=== PATIENT | female | born 1980 | race African-American/Black ===

== ENCOUNTER 2019-09-09 21:58 | Observation (INO) | payer MEDICAID ==
[~2019-09-09] VITALS: Ht 170.2 cm; Wt 98.4 kg
[2019-09-09] MEDS ORDERED: TERBUTALINE SULFATE 1MG/ML VIAL SUBCUT PRN (23:30)
[2019-09-09] MEDS ORDERED: FLUCONAZOLE 150MG TABLET PO NR (23:30)
[2019-09-09] MEDS: LACTATED RINGERS 1,000 ML IV SCH (23:45)
[2019-09-09 23:53] LABS: CLARITY URINE CLEAR (CLEAR); COLOR URINE YELLOW (YELLOW); KETONES URINE TRACE (NEGATIVE); LEUKOCYTE ESTERASE URINE 3+ (NEGATIVE); NITRITE URINE NEGATIVE (NEGATIVE); OCCULT BLOOD URINE NEGATIVE (NEGATIVE); PH URINE 6.5 (4.5-8.0); PROTEIN URINE NEGATIVE (NEGATIVE); SPECIFIC GRAVITY URINE 1.005 (1.005-1.030); UROBILINOGEN URINE 0.2 E.U./dL (0.2-1.0)
[2019-09-10] MEDS: LACTATED RINGERS 1,000 ML IV SCH (00:11)
[2019-09-10] MEDS ORDERED: PREN1TAB78 PO (01:08)
== END 2019-09-10 01:45 | disposition home or self-care (01) ==
LOC: 8 EST LDRP 21:58
PROVIDERS: ADMIT Obstetrics & Gynecology; ATTEND Obstetrics & Gynecology
DX: O26.893 Other specified pregnancy related conditions, third trimester (principal); R10.30 Lower abdominal pain, unspecified; O99.89 Other specified diseases and conditions complicating pregnancy, childbirth and the puerperium; M54.5 Low back pain; O09.523 Supervision of elderly multigravida, third trimester; Z3A.33 33 weeks gestation of pregnancy
CPT/HCPCS: 81003; 82731; 96360; 96361; 96372; 99281; G0378; J3105

== ENCOUNTER → 2019-10-15 | Outpatient (CLI) | payer MEDICAID ==
[~2019-10-15] MED LIST: PREN1TAB78 PO
== END | disposition home or self-care (01) ==
LOC: LAB 14:46
PROVIDERS: ATTEND Obstetrics & Gynecology
DX: Z03.818 Encounter for observation for suspected exposure to other biological agents ruled out (principal)
CPT/HCPCS: C9803; U0003

== ENCOUNTER 2019-10-18 05:16 | Inpatient (IN) | payer MEDICAID ==
[~2019-10-18] VITALS: Ht 170.2 cm; Wt 99.8 kg
[2019-10-18] MEDS ORDERED: NALOXONE HCL 0.4 MG/ML 1ML VIAL IM PRN (06:00)
[2019-10-18] MEDS ORDERED: METHYLERGONOVINE MALEATE 0.2 MG/ML IM PRN (06:00)
[2019-10-18] MEDS ORDERED: CARBOPROST TROMETHAMINE 250 MCG/ML AMPUL IM PRN (06:00)
[2019-10-18] MEDS ORDERED: CITRIC ACID/SODIUM CITRATE SOLN 30ML UDC PO NR (06:00)
[2019-10-18] MEDS: LACTATED RINGERS 1,000 ML IV SCH ×2 (06:09→07:11)
[2019-10-18 06:53] LABS: CLARITY URINE CLEAR (CLEAR); COLOR URINE YELLOW (YELLOW); KETONES URINE NEGATIVE (NEGATIVE); LEUKOCYTE ESTERASE URINE 3+ (NEGATIVE); NITRITE URINE NEGATIVE (NEGATIVE); OCCULT BLOOD URINE NEGATIVE (NEGATIVE); PH URINE 6.5 (4.5-8.0); PROTEIN URINE NEGATIVE (NEGATIVE); SPECIFIC GRAVITY URINE 1.011 (1.005-1.030); UROBILINOGEN URINE 0.2 E.U./dL (0.2-1.0)
[2019-10-18 07:05] LABS: INR 0.9; PARTIAL THROMBOPLASTIN TIME 22.8 sec (23.4-31.0); PROTHROMBIN TIME 9.3 sec (9.6-11.0)
[2019-10-18] MEDS ORDERED: MIDAZOLAM HCL 2 MG/2 ML VIAL ONE (07:05)
[2019-10-18] MEDS ORDERED: MORPHINE SULFATE/PF 1MG/ML 10ML AMP ONE (07:05)
[2019-10-18] MEDS ORDERED: FENTANYL CITRATE/PF 50MCG/ML 2ML VIAL ONE (07:05)
[2019-10-18] MEDS ORDERED: CEFAZOLIN SODIUM 1000MG/VIAL ONE (07:06)
[2019-10-18] MEDS ORDERED: ONDANSETRON HCL 4MG/2ML INJ ONE (07:06)
[2019-10-18] MEDS ORDERED: OXYTOCIN 10 UNITS/ML 1ML ONE ×2 (07:06→13:22)
[2019-10-18] MEDS ORDERED: GLYCOPYRROLATE 0.2 MG/ML 2ML VIAL ONE (07:06)
[2019-10-18 07:20] LABS: BASOPHILS % 0.3 % (0.0-2.0); EOSINOPHILS % 0.6 % (0.0-5.0); HEMATOCRIT. 29.3 % (36.0-48.0); HEMOGLOBIN. 9.9 g/dL (12.0-16.0); LYMPHOCYTES % 17.8 % (20.0-50.0); MEAN CORPUSCULAR HEMOGLOBIN 25.2 pg (28.0-32.0); MEAN CORPUSCULAR VOLUME 74.6 fL (81.0-99.0); MEAN PLATELET VOLUME 9.7 fl (7.4-10.4); MONOCYTES % 9.6 % (2.0-8.0); NEUTROPHILS % 71.7 % (40.0-76.0); PLATELET 192 x1000/uL (130-400); RED BLOOD CELL COUNT 3.93 mill/uL (4.2-5.4); RED CELL DISTRIBUTION WIDTH 16.1 % (11.6-14.6)
[2019-10-18 07:49] LABS: *AMPHETAMINES SCREEN URINE NEGATIVE (NEGATIVE); *BARBITURATES SCREEN URINE NEGATIVE (NEGATIVE)
[2019-10-18 07:50] LABS: *BENZODIAZEPINES SCREEN URINE NEGATIVE (NEGATIVE); *COCAINE SCREEN URINE NEGATIVE (NEGATIVE); CANNABINOID URINE SCREEN NEGATIVE (NEGATIVE); METHADONE URINE SCREEN NEGATIVE (NEGATIVE); OPIATES URINE SCREEN NEGATIVE (NEGATIVE); PHENCYCLIDINE URINE SCREEN NEGATIVE (NEGATIVE)
[2019-10-18 13:12] LABS: HEPATITIS B SURFACE ANTIGEN NEGATIVE
[2019-10-18] MEDS ORDERED: KETOROLAC 60MG/2ML VIAL IM ONE (13:17)
[2019-10-18] MEDS ORDERED: DIPHENHYDRAMINE 50MG/ML VIAL ONE (13:17)
[2019-10-18] MEDS ORDERED: BUTORPHANOL TARTRATE 2 MG/ML VIAL IV PRN (14:30)
[2019-10-18] MEDS ORDERED: NALOXONE HCL 0.4 MG/ML 1ML VIAL IV PRN (14:30)
[2019-10-18] MEDS ORDERED: KETOROLAC 30MG/ML VIAL IV SCH (14:30)
[2019-10-18] MEDS: DEXT 5%/LR + PITOCIN 20UNITS/L 1,000 ML IV SCH ×2 (16:23→22:59)
[2019-10-18] MEDS: DIPHENHYDRAMINE 50MG/ML VIAL IV PRN ×2 (17:07→22:30)
[2019-10-18] MEDS ORDERED: BISACODYL 10MG SUPP PR PRN (17:30)
[2019-10-18] MEDS ORDERED: LANOLIN OINT 7GM TUBE TOP PRN (17:30)
[2019-10-18] MEDS ORDERED: ONDANSETRON HCL 4MG/2ML INJ IV PRN (17:30)
[2019-10-18] MEDS ORDERED: HEMORRHOIDAL SUPP PR PRN (17:30)
[2019-10-18] MEDS ORDERED: HYDROCODONE/ACETAMINOPHEN 5/325MG TABLET PO PRN ×2 (17:30)
[2019-10-18 18:00] VITALS: BP 103/68
[2019-10-18] MEDS ORDERED: DEXT 5%/LR + PITOCIN 20UNITS/L 1,000 ML IV SCH (18:00)
[2019-10-18 20:00] VITALS: BP 99/59
[2019-10-18] MEDS ORDERED: DOCUSATE SODIUM 100MG CAPSULE PO SCH (21:00)
[2019-10-19] VITALS: BP 104/72
[2019-10-19 05:00] VITALS: BP 102/68
[2019-10-19 06:49] LABS: BASOPHILS % 0.3 % (0.0-2.0); EOSINOPHILS % 0.8 % (0.0-5.0); HEMATOCRIT. 25.4 % (36.0-48.0); HEMOGLOBIN. 8.5 g/dL (12.0-16.0); LYMPHOCYTES % 10.1 % (20.0-50.0); MEAN CORPUSCULAR VOLUME 74.7 fL (81.0-99.0); MEAN PLATELET VOLUME 8.9 fl (7.4-10.4); MONOCYTES % 8.9 % (2.0-8.0); NEUTROPHILS % 79.9 % (40.0-76.0); PLATELET 153 x1000/uL (130-400); RED CELL DISTRIBUTION WIDTH 15.6 % (11.6-14.6)
[2019-10-19 07:39] VITALS: BP 92/50
[2019-10-19] MEDS: SIMETHICONE 80MG TABLET CHEW PO SCH ×4 (08:26→20:37)
[2019-10-19] MEDS: PRENATAL VIT/FE FUMARATE/FA TABLET PO SCH (08:26)
[2019-10-19] MEDS: IBUPROFEN 400MG TABLET PO PRN ×2 (08:26→17:54)
[2019-10-19] MEDS: FERROUS SULFATE 325MG TABLET PO SCH ×3 (08:26→17:53)
[2019-10-19 15:50] VITALS: BP 112/72
[2019-10-19 20:00] VITALS: BP 118/75
[2019-10-20] VITALS: BP 110/71
[2019-10-20 04:00] VITALS: BP 115/81
[2019-10-20] MEDS: IBUPROFEN 400MG TABLET PO PRN ×2 (04:08→12:39)
[2019-10-20 08:00] VITALS: BP 127/76
[2019-10-20] MEDS: FERROUS SULFATE 325MG TABLET PO SCH ×2 (09:12→12:30)
[2019-10-20] MEDS: PRENATAL VIT/FE FUMARATE/FA TABLET PO SCH (09:12)
[2019-10-20] MEDS: SIMETHICONE 80MG TABLET CHEW PO SCH ×2 (09:13→13:00)
== END 2019-10-20 15:15 | disposition home or self-care (01) | DRG 540 ==
LOC: OBSVTOIN 05:16 → 8 EST LDRP 05:16 → INTOOBSV 05:16 → 8EST 19:19
PROVIDERS: ADMIT Obstetrics & Gynecology; ATTEND Obstetrics & Gynecology
PROC: 10D00Z1 Extraction of Products of Conception, Low, Open Approach (ICD-10-PCS; principal; 2019-10-18)
PROC: 0UT70ZZ Resection of Bilateral Fallopian Tubes, Open Approach (ICD-10-PCS; 2019-10-18)
DX: O34.211 Maternal care for low transverse scar from previous cesarean delivery (principal); O99.62 Diseases of the digestive system complicating childbirth; K66.0 Peritoneal adhesions (postprocedural) (postinfection); Z30.2 Encounter for sterilization; Z37.0 Single live birth; Z3A.00 Weeks of gestation of pregnancy not specified
CPT/HCPCS: 36415; 80305; 81003; 85025; 86592; 86703; 86762; 86850; 86900; 86920; 87340; 88302; 88307; J0690; J1200; J1885; J2250; J2274; J2405; J2590; J3010; J3490; J7120